=== PATIENT | female | born 1955 | race Caucasian/White ===

== ENCOUNTER 2017-03-16 10:48 | Emergency (ER) | payer SELFPAY ==
--- NOTE | 2017-03-16 11:21 | UC ---
Skin Complaint HPI - HPI Summary HPI Summary: 61 year old female presents with complains of shingles on her right thigh. - History of Current Complaint Time Seen by Provider: 03/16/17 11:21 Stated Complaint: SKIN COMPLAINT Hx Obtained From: Patient Hx Last Menstrual Period: ONE YEAR AGO Onset/Duration: Sudden Onset Skin Exposure Onset/Duration: Days Ago Onset Severity: Moderate - Allergy/Home Medications Allergies/Adverse Reactions: Allergies Allergy/AdvReac Type Severity Reaction Status Date / Time Hydrocodone [From Vicodin] AdvReac Intermediate DISORIENTAT Verified 03/16/17 11 :22 ION Review of Systems Constitutional: Negative Skin: Rash, Other - right thigh shingles Eyes: Negative ENT: Negative Respiratory: Negative Cardiovascular: Negative Gastrointestinal: Negative Genitourinary: Negative Motor: Negative Neurovascular: Negative Musculoskeletal: Negative Neurological: Negative Psychological: Negative All Other Systems Reviewed And Are Negative: Yes PMH/Surg Hx/FS Hx/Imm Hx Previously Healthy: Yes - Surgical History Surgical History: Yes Surgery Procedure, Year, and Place: spleenectomy - Social History Alcohol Use: Rare Substance Use Type: None Physical Exam Triage Information Reviewed: Yes Vital Signs Reviewed: Yes Eye Exam: Normal ENT Exam: Normal Dental Exam: Normal Neck exam: Normal Neck: Positive: 1 Respiratory Exam: Normal Cardiovascular Exam: Normal Abdominal Exam: Normal Musculoskeletal Exam: Normal Neurological Exam: Normal Psychological Exam: Normal Skin: Positive: rashes, Other - right thigh shingles Course/Dx - Diagnoses Provider Diagnoses: right thigh shingles Discharge - Discharge Plan Condition: Stable Disposition: HOME Prescriptions: Capsaicin 0.025% CREAM* [Zostrix 0.025% CREAM*] 1 applic TOPICAL BID #1 tube predniSONE TAB* [Deltasone TAB*] 40 mg PO DAILY #20 tab ValACYclovir (*) [Valtrex 1 GM(*)] 1 gm PO TID #21 tab Patient Education Materials: Shingles (ED), Acute Rash (ED) Referrals: Topher Acuña PA [Primary Care Provider] - Kaitlyn Lyle [Medical Doctor] -
[2017-03-16 11:22] VITALS: BP 155/83
== END 2017-03-16 11:35 | disposition home or self-care (01) ==
LOC: UCCORT 10:48
DX: B02.0 Zoster encephalitis (principal)
CPT/HCPCS: 99202; G0463